=== PATIENT | female | born 1950 | race African-American/Black ===

== ENCOUNTER 2018-12-26 08:33 | Inpatient (IN) | payer BC ==
[2018-12-13 14:54] VITALS: BMI 38.3
[2018-12-26] MEDS ORDERED: BUPIVACAINE LIPOSOME/PF (EXPAREL) 266 MG/20 ML VIAL ONE (09:15)
[2018-12-26] MEDS ORDERED: MIDAZOLAM HCL 2 MG/2 ML SINGLE DOSE VIAL ONE (09:15)
[2018-12-26] MEDS ORDERED: SODIUM CHLORIDE 0.9% P/F 10 ML VIAL IJ ONE (09:16)
[2018-12-26] MEDS ORDERED: ceFAZolin SODIUM 1 GM VIAL ONE (10:39)
[2018-12-26] MEDS ORDERED: DEXAMETHASONE SOD PHOSPHATE 4 MG/1 ML VIAL ONE (10:39)
[2018-12-26] MEDS ORDERED: KETOROLAC TROMETHAMINE 30 MG/1 ML VIAL ONE (10:39)
[2018-12-26] MEDS ORDERED: VANCOMYCIN 1,000 MG VIAL (RESTRICTED TO ID ONLY) ONE (10:39)
[2018-12-26] MEDS ORDERED: TRANEXAMIC ACID 1000 MG/10 ML VIAL ONE (10:39)
[2018-12-26] MEDS ORDERED: PROPOFOL 20 ML ONE ×3 (10:41→12:21)
[2018-12-26] MEDS ORDERED: CEFAZOLIN 2 GM in DEXTROSE 5%-WATER - 50 ML IVPB ONE (10:57)
[2018-12-26] MEDS ORDERED: TRANEXAMIC ACID 1000 MG/10 ML VIAL IVPUSH ONE (10:57)
[2018-12-26] MEDS ORDERED: VANCOMYCIN 1,000 MG in DEXTROSE 5%-WATER - 250 ML IVPB ONE (10:57)
[2018-12-26] MEDS ORDERED: LIDOCAINE HCL 2% 100 MG/5 ML DISP.SYRIN ONE (11:09)
[2018-12-26] MEDS ORDERED: ONDANSETRON 4 MG/2 ML VIAL ONE (11:17)
--- NOTE | 2018-12-26 13:30 | OP ---
Operative Note - Note: Operative Date: 12/26/18 Pre-Operative Diagnosis: Left Tricompartment Osteoarthritis Operation: L Total Knee Arthroplasty Implants: Renetta Femur Triatholon 5 Tibia 4 Patella 27 Surgeon: Americo Salazar Library Science Professor: Toi Rausch Anesthesia: Spinal Estimated Blood Loss (mls): 0 Drains & Tubes with Location: 03/13 Hemovac times 2 Fluid Volume Replaced (mls): 2
--- NOTE | 2018-12-26 13:34 | HP ---
HISTORY OF PRESENT ILLNESS: 68 year-old female with a PMH significant for HTN, HLD, Type II NIDDM, diabetic neuropathy, iron-deficiency anemia, CKD, and OA s/p left total knee arthroplasty today with Dr. Salazar. PAST MEDICAL HISTORY: Hypertension Hyperlipidemia Type II NIDDM Diabetic neuropathuy Iron deficiency anemia CKD, Stage 3 PAST SURGICAL HISTORY: None reported Social History: Smoking: Alcohol: Drugs: Allergies aspirin Allergy (Severe, Verified 12/26/18 09:09) Difficulty Breathing HOME MEDICATIONS: Home Medications Medication Instructions Recorded Amitriptyline HCl [Elavil -] 50 mg PO HS 12/13/18 Atorvastatin Calcium 20 mg PO DAILY 12/13/18 Duloxetine HCl [Cymbalta] 30 mg PO BID 12/13/18 Fluticasone/Salmeterol [Advair Hfa 1 inh PO BID 12/13/18 230-21 Mcg Inhaler] Gabapentin 100 mg PO BID 12/13/18 Ibuprofen/Famotidine [Duexis 1 each PO BID 12/13/18 800-26.6 mg Tablet] Losartan/Hydrochlorothiazide 1 each PO DAILY 12/13/18 [Losartan-Hctz 50-12.5 mg Tab] Metformin HCl [Glucophage] 1,000 mg PO BID 12/13/18 Omeprazole 20 mg PO DAILY 12/13/18 Sitagliptin Phosphate [Januvia -] 50 mg PO DAILY 12/13/18 REVIEW OF SYSTEMS CONSTITUTIONAL: Absent: fever, chills, diaphoresis, generalized weakness, malaise, loss of appetite, weight change HEENT: Absent: rhinorrhea, nasal congestion, throat pain, throat swelling, difficulty swallowing, mouth swelling, ear pain, eye pain, visual changes CARDIOVASCULAR: Absent: chest pain, syncope, palpitations, irregular heart rate, lightheadedness , peripheral edema RESPIRATORY: Absent: cough, shortness of breath, dyspnea with exertion, orthopnea, wheezing, stridor, hemoptysis GASTROINTESTINAL: Absent: abdominal pain, abdominal distension, nausea, vomiting, diarrhea, constipation, melena, hematochezia GENITOURINARY: Absent: dysuria, frequency, urgency, hesitancy, hematuria, flank pain, genital pain MUSCULOSKELETAL: Absent: myalgia, arthralgia, joint swelling, back pain, neck pain SKIN: Absent: rash, itching, pallor HEMATOLOGIC/IMMUNOLOGIC: Absent: easy bleeding, easy bruising, lymphadenopathy, frequent infections ENDOCRINE: Absent: unexplained weight gain, unexplained weight loss, heat intolerance, cold intolerance NEUROLOGIC: Absent: headache, focal weakness or paresthesias, dizziness, unsteady gait, seizure, mental status changes, bladder or bowel incontinence PSYCHIATRIC: Absent: anxiety, depression, suicidal or homicidal ideation, hallucinations. PHYSICAL EXAMINATION Vital Signs - 24 hr 12/26/18 12/26/18 09:17 09:19 Temperature 98.5 F Pulse Rate 72 Respiratory 16 Rate Blood Pressure 143/85 O2 Sat by Pulse 100 Oximetry (%) GENERAL: Awake, alert, and fully oriented, in no acute distress. HEAD: Normal with no signs of trauma. EYES: Pupils equal, round and reactive to light, extraocular movements intact, sclera anicteric, conjunctiva clear. No lid lag. EARS, NOSE, THROAT: Ears normal, nares patent, oropharynx clear without exudates. Moist mucous membranes. NECK: Normal range of motion, supple without lymphadenopathy, JVD, or masses. LUNGS: Breath sounds equal, clear to auscultation bilaterally. No wheezes, and no crackles. No accessory muscle use. HEART: Regular rate and rhythm, normal S1 and S2 without murmur, rub or gallop. ABDOMEN: Soft, nontender, not distended, normoactive bowel sounds, no guarding, no rebound, no masses. No hepatomegaly or splenomegaly. MUSCULOSKELETAL: Normal range of motion at all joints. No bony deformities or tenderness. No CVA tenderness. UPPER EXTREMITIES: 2+ pulses, warm, well-perfused. No cyanosis. No clubbing. No peripheral edema. LOWER EXTREMITIES: 2+ pulses, warm, well-perfused. No calf tenderness. No peripheral edema. NEUROLOGICAL: Cranial nerves II-XII intact. Normal speech. Normal gait. PSYCHIATRIC: Cooperative. Good eye contact. Appropriate mood and affect. SKIN: Warm, dry, normal turgor, no rashes or lesions noted, normal capillary refill. Laboratory Results - last 24 hr 12/26/18 09:29 POC Glucometer 99 Pre op Intra op Ancef 2g, Vanc 1g EBL <100mL LR 1800mL ASSESSMENT/PLAN: 68 year-old female with a PMH significant for HTN, HLD, Type II NIDDM, diabetic neuropathy, iron-deficiency anemia, CKD, and OA s/p left total knee arthroplasty today with Dr. Salazar. Left total knee arthroplasty on 12/26 --POD #0 --perioperative antibiotics per surgery --pain management per surgery --lovenox subq 30mg BID --protonix --bowel regimen --incentive spirometry --Hemovac drain, monitor output --monitor UOP Hypertension --continue HCTZ, losartan Hyperlipidemia --continue Lipitor Type II NIDDM Diabetic neuropathy --continue Januvia, metformin --Novolog sliding scale coverage Iron-deficiency anemia CKD, Stage 3 --pre op Cr 1.5 FEN Fluids: PO intake adequate Electrolytes: replete as indicated Nutrition: regular diet DVT prophylaxis: OOB, ambulation, SCDs, TEDs, subq lovenox Physical therapy Dispo: continues to require inpatient care. Full code. Visit type - Emergency Visit Emergency Visit: No - New Patient This patient is new to me today: Yes Date on this admission: 12/28/18 - Critical Care Critical Care patient: No
--- NOTE | 2018-12-26 13:53 | SURG ---
Surgery Wildlife Control Agent Note Wildlife Control Agent: Toi Rausch PA-C Date of Service: 12/26/18 Diagnosis: Left Tricompartment Osteoarthritis Procedure: Left Total Knee Arthroplasty I was present for the entirety of the operative procedure. For further detail, please refer to operative report. Visit type - Case Type Case Type: Scheduled - New patient This patient is new to me today: Yes Date on this admission: 12/26/18
[2018-12-26] MEDS ORDERED: ONDANSETRON 4 MG/2 ML VIAL IVPUSH PRN (13:54)
[2018-12-26] MEDS ORDERED: MAGNESIUM HYDROX 2400MG/30ML ORAL SUSPENSION 30 ML CUP PO PRN (13:54)
[2018-12-26] MEDS ORDERED: ACETAMINOPHEN 325 MG TABLET (FP) PO SCH (14:00)
[2018-12-26] MEDS ORDERED: LACTATED RINGERS SOLUTION 1,000 ML IV SCH (14:00)
[2018-12-26] MEDS: metFORMIN HCL 500 MG TABLET (FP) PO SCH (17:08)
[2018-12-26] MEDS: CEFAZOLIN 2 GM/D5W 2 GM/50 ML ML IVPB SCH (18:19)
[2018-12-26] MEDS: oxyCODONE HCL 5 MG TABLET PO PRN (18:20)
[2018-12-26] MEDS ORDERED: PT OWN MED DRAWER 7, Y5N ONE (21:09)
[2018-12-26] MEDS ORDERED: INSULIN (NOVOLOG) ASPART 100 UNITS/ML 10ML VIAL ONE (21:10)
[2018-12-26] MEDS: BUDESONIDE/FORMETEROL FUMARATE 80/4.5 mcg INHALER IH SCH (21:20)
[2018-12-26] MEDS: AMITRIPTYLINE HCL 25 MG TABLET (FP) PO SCH (21:21)
[2018-12-26] MEDS: SENNOSIDES/DOCUSATE COMBO (SENNA PLUS) TABLET (UD) PO SCH (21:21)
[2018-12-26] MEDS: GABAPENTIN 100 MG CAPSULE (FP) PO SCH (21:21)
[2018-12-26] MEDS: DULoxetine HCL 30 MG CAPSULE.DR PO SCH (21:21)
[2018-12-26] MEDS: oxyCODONE HCL 10 MG SUSTAINED ACTING TABLET PO SCH (21:22)
[2018-12-26] MEDS: ACETAMINOPHEN 325 MG TABLET (FP) PO SCH (21:22)
[2018-12-26] MEDS: ASCORBIC ACID 500 MG TABLET (FP) PO SCH (21:23)
[2018-12-26] MEDS: INSULIN SLIDING SCALE (NOVOLOG) 1 VIAL SQ SCH (21:23)
[2018-12-26] MEDS: ENOXAPARIN NA (PORCINE) 30 MG/0.3 ML DISP.SYRIN SQ SCH (21:23)
[2018-12-26] MEDS ORDERED: PATIENT'S OWN MEDICATION (NON-FORMULARY) (Ibuprofen/Famotidine [Duexis 800-26.6 Mg Tablet] PO SCH (22:00)
[2018-12-26] MEDS ORDERED: PATIENT'S OWN MEDICATION (NON-FORMULARY) (Fluticasone/Salmeterol [Advair Hfa 230-21 Mcg In PO SCH (22:00)
[2018-12-26] MEDS ORDERED: PATIENT'S OWN MEDICATION (NON-FORMULARY) (Metformin Hcl [Glucophage] 1,000 MG) PO SCH (22:00)
[2018-12-26] MEDS ORDERED: ASPIRIN 325 MG TABLET PO SCH (22:00)
[2018-12-27] MEDS: oxyCODONE HCL 5 MG TABLET PO PRN ×4 (00:38→17:25)
[2018-12-27] MEDS: CEFAZOLIN 2 GM/D5W 2 GM/50 ML ML IVPB SCH (01:52)
[2018-12-27] MEDS: ACETAMINOPHEN 325 MG TABLET (FP) PO SCH ×4 (03:00→20:15)
[2018-12-27] MEDS: metFORMIN HCL 500 MG TABLET (FP) PO SCH ×2 (06:36→17:24)
[2018-12-27] MEDS: sitaGLIPtin PHOSPHATE 50 MG TABLET PO SCH (06:38)
[2018-12-27] MEDS: INSULIN SLIDING SCALE (NOVOLOG) 1 VIAL SQ SCH ×4 (06:42→21:31)
[2018-12-27 07:16] LABS: HEMATOCRIT 27.9 % (32.4-45.2); MCH 29.2 pg (25.7-33.7); MCHC 32.2 g/dl (32.0-36.0); MEAN CELL VOLUME 90.7 fl (80-96); MEAN PLT VOLUME 9.2 fl (7.5-11.1); PLATELET COUNT 257 K/MM3 (134-434); RBC 3.08 M/mm3 (3.60-5.2); RDW 13.6 % (11.6-15.6); WHITE BLOOD COUNT 10.5 K/mm3 (4.0-10.8)
[2018-12-27 07:32] LABS: CALCIUM 8.5 mg/dl (8.5-10); CREATININE 1.8 mg/dl (0.55-1.3); MAGNESIUM 1.2 mg/dL (1.8-2.4); POTASSIUM 4.5 mmol/L (3.5-5.1)
--- NOTE | 2018-12-27 08:07 | OP ---
DATE OF OPERATION: 12/26/2018 SURGEON: Americo Salazar MD BUTADIENE CONVERTER HELPER: JAMI Dan PREOPERATIVE DIAGNOSIS: Tricompartment osteoarthritis, left knee. POSTOPERATIVE DIAGNOSIS: Tricompartment osteoarthritis, left knee. OPERATION PERFORMED: Left posterior-stabilized total knee arthroplasty ([place] ). ANESTHESIA: Conscious sedation with spinal anesthesia and peripheral nerve block. ANTIBIOTICS GIVEN: Kefzol 2 g, vancomycin 1 g preoperative; Kefzol 1 g given at the end of the procedure. OPERATION DETAILS: The patient correctly identified, brought to the operating room. Left lower extremity was prepped and draped in the routine manner with Betadine scrub solution, wiped off with alcohol. DuraPrep applied. Imaging was available for intraoperative evaluation. Heavy leg. Difficult operation. In the supine position, the left lower extremity was prepped and draped in routine manner with Betadine scrub solution, wiped off with alcohol. DuraPrep applied. Midline incision utilized. The dissection was taken through the skin and subcutaneous tissue to the quadriceps mechanism. Starting on the medial side, the tibial tubercle the soft tissue was dissected onto the bone bed, lifted off the bone using a unipolar Bovie. This gave easy access to the actual proximal tibia. The incision was then coursed backwards to the posterior medial aspect of the distal femur, approximately 1 inch below the border of vastus medialis. The vastus medialis epimysium was lifted off the muscle, and the dissection was taken right around to linear aspera and to the vascular bundle at the adductor canal and adductor hiatus. With difficulty, we could not flex the knee adequately; this necessitated first the patella cut. The cut was made along Bynum line from patellar ligament to the quadriceps tendon. The appropriate lug holes were drilled to receive a size 27-mm patellar button. Once performed, the tibia was cut 90 degrees to the shaft of the tibia to receive a size 4 tibial component. The appropriate broaches and starter holes were inserted through the broach. The femur was cut to 4 degrees of valgus and 8 mm resected. There was no fixed flexion deformity. The femoral component measured size 5, and this enabled a very adequate, after utilizing the jig cuts, the size 5 seated well. With a size 11 polyethylene tray in the trial position, the limb was aligned well into neutral anatomical coronal plane alignment. The tracking was neutral and normal with a negative thumb test. Femoral flexion gap testing was tight and well maintained. This was measured with a Condon, elevating the medial compartment of the actual implant surface. Once we were happy with all the trialing components, the bone bed was thoroughly lavaged with pulse lavage. Cementing was in 1 stage, tibia, femur, and then patella. All extraneous cement was removed without any difficulty. Size 11 polyethylene for a posterior-stabilized implant was then inserted. Again, this simulated what we found on the trialing components, and excellent alignment with full extension, flexion to 120 degrees, complete stability in the coronal sagittal plane and rotational plane. Patellar tracking was uncomplicated and neutral. Subvastus repair was with number 1 Vicryl, that is medial and lateral retinaculum extending down to the medial aspect of the femur. Thick layer of subcutaneous tissue number 1 Vicryl subcutaneous and 2-0 Vicryl. Skin marlen. DRAINAGE: A 1/8-inch Hemovac x2, one placed at the subvastus area and the other in the subcutaneous fat layer of the starter wound. COMPLICATIONS: None. MD CHRIS Hurtado/[id number] MTDD
[2018-12-27] MEDS: ATORVASTATIN CA 20 MG TABLET (FP) PO SCH (09:43)
[2018-12-27] MEDS: GABAPENTIN 100 MG CAPSULE (FP) PO SCH ×2 (09:43→21:32)
[2018-12-27] MEDS: DULoxetine HCL 30 MG CAPSULE.DR PO SCH ×2 (09:43→21:31)
[2018-12-27] MEDS: ENOXAPARIN NA (PORCINE) 30 MG/0.3 ML DISP.SYRIN SQ SCH ×2 (09:43→21:32)
[2018-12-27] MEDS: MULTIVITAMINS (DAILY MVI) TABLET (FP) PO SCH (09:44)
[2018-12-27] MEDS: ASCORBIC ACID 500 MG TABLET (FP) PO SCH ×2 (09:44→21:32)
[2018-12-27] MEDS: PANTOPRAZOLE 40 MG TABLET (FP) PO SCH (09:44)
[2018-12-27] MEDS: oxyCODONE HCL 10 MG SUSTAINED ACTING TABLET PO SCH ×2 (09:44→21:32)
[2018-12-27] MEDS: SENNOSIDES/DOCUSATE COMBO (SENNA PLUS) TABLET (UD) PO SCH ×2 (09:44→21:33)
[2018-12-27] MEDS ORDERED: LOSARTAN 50MG/HCTZ 12.5MG 1 TAB (FP) PO SCH (10:00)
[2018-12-27] MEDS ORDERED: PATIENT'S OWN MEDICATION (NON-FORMULARY) (Omeprazole [Omeprazole] 20 MG) PO SCH (10:00)
--- NOTE | 2018-12-27 10:11 | PN ---
Progress Note (short form) - Note Progress Note: POD#1 PT with some dizziness this am. No CP/SOB. Voiding without difficulty. Left foot with some numbess/tingling more than her baseline neuropathy. Vital Signs Period Temp Pulse Resp BP Sys/Rao Pulse Ox Last 24 Hr 97.4 F-98.5 F 55-75 13-18 108-144/55-88 100-100 VISHAL:10ml(placed back on self suction) GEN: A&0x3, oob to chair CV; RRR Lungs: CTA b/l Left knee dressing c/d/i. 5/5 albaro/plantar flexion/EHL b/l. Able to straight leg raise right>left LE: b/l calves soft, non-tender, no edema. SCDs/TEDs in place. CBC, BMP 12/27/18 07:09 12/27/18 07:09 Laboratory Tests 12/26/18 12/26/18 12/26/18 09:29 13:55 21:18 POC Glucometer 99 90 166 12/27/18 06:34 POC Glucometer 118 A/p: 68 yo female s/p Left total knee replacment, POD#1 Glucose well controlled, continue oral medications/insulin.j DVT ppx with lovenox 30mg SQ BID, unable to take aspirin to due allergy. OOB/ ambulate/TAMIKA/SCDS Pain management with oral pain medications. Drain to self suction, replaced today because it wasn't holding suction OOB and ambulate with PT/nursing staff D/w Dr. Salazar
[2018-12-27] MEDS: BUDESONIDE/FORMETEROL FUMARATE 80/4.5 mcg INHALER IH SCH ×2 (10:14→21:33)
--- NOTE | 2018-12-27 10:46 | PN ---
Progress Note (short form) - Note Progress Note: 68 yo F, s/p TKR. pt comfortable on PO meds. no anesthetic comps. good result anesthetic care
[2018-12-27] MEDS ORDERED: PT OWN MED DRAWER 7, Y5N ONE (10:48)
[2018-12-27] MEDS ORDERED: SODIUM CHLORIDE 500 ML IV STA (13:46)
--- NOTE | 2018-12-27 18:44 | PN ---
Physical Exam: SUBJECTIVE: Patient seen and examined. No pain at present. Participated in PT this morning. OBJECTIVE: Vital Signs Period Temp Pulse Resp BP Sys/Rao Pulse Ox Last 24 Hr 97.6 F-98.5 F 67-79 16-18 108-141/48-69 100-100 GENERAL: Awake, alert, and fully oriented, in no acute distress. LUNGS: Breath sounds equal, clear to auscultation bilaterally. No wheezes, and no crackles. No accessory muscle use. HEART: Regular rate and rhythm, normal S1 and S2 UPPER EXTREMITIES: 2+ pulses, warm, well-perfused. No cyanosis. No clubbing. No peripheral edema. LLE: Surgical dressings c/d/i; SCDs, TEDs, ice pack; flex/extend toes, 5/5 sensory NEUROLOGICAL: Cranial nerves II-XII intact. Normal speech. Laboratory Results - last 24 hr 12/26/18 12/27/18 12/27/18 21:18 06:34 07:09 WBC 10.5 RBC 3.08 L Hgb 9.0 L Hct 27.9 L MCV 90.7 MCH 29.2 MCHC 32.2 RDW 13.6 Plt Count 257 MPV 9.2 Sodium Potassium Chloride Carbon Dioxide Anion Gap BUN Creatinine Est GFR (CKD-EPI)AfAm Est GFR (CKD-EPI)NonAf POC Glucometer 166 118 Random Glucose Calcium Magnesium 12/27/18 12/27/18 12/27/18 07:09 11:22 16:26 WBC RBC Hgb Hct MCV MCH MCHC RDW Plt Count MPV Sodium 137 Potassium 4.5 Chloride 103 Carbon Dioxide 22 Anion Gap 12 BUN 26.0 H Creatinine 1.8 H Est GFR (CKD-EPI)AfAm 32.48 Est GFR (CKD-EPI)NonAf 28.02 POC Glucometer 94 116 Random Glucose 128 H Calcium 8.5 Magnesium 1.2 L Active Medications Generic Name Dose Route Start Last Admin Trade Name Freq PRN Reason Stop Dose Admin Acetaminophen 650 mg 12/26/18 21:00 12/27/18 15:40 Tylenol - PO 12/29/18 20:59 Not Given Q6H LIBIA Al Hydroxide/Mg Hydroxide 30 ml 12/26/18 13:54 Mylanta Oral Suspension - PO Q4H PRN DYSPEPSIA Amitriptyline HCl 50 mg 12/26/18 22:00 12/26/18 21:21 Elavil - PO 50 mg HS [facility] Administration Ascorbic Acid 500 mg 12/26/18 22:00 12/27/18 09:44 Vitamin C - PO 500 mg BID LIBIA Administration Atorvastatin Calcium 20 mg 12/27/18 10:00 12/27/18 09:43 Lipitor - PO 20 mg DAILY LIBIA Administration Budesonide/Formoterol Fumarate 2 puff 12/26/18 22:00 12/27/18 10:14 Symbicort 80/4.5mcg - IH 2 puff BID [facility] Administration Duloxetine HCl 30 mg 12/26/18 22:00 12/27/18 09:43 Cymbalta - PO 30 mg BID [facility] Administration Enoxaparin Sodium 30 mg 12/26/18 22:00 12/27/18 09:43 Lovenox - SQ 30 mg BID [facility] Administration Gabapentin 100 mg 12/26/18 22:00 12/27/18 09:43 Neurontin - PO 100 mg BID [facility] Administration HCTZ/Losartan Potassium 1 tab 12/27/18 10:00 Hyzaar - PO DAILY [facility] Insulin Aspart 1 vial 12/26/18 22:00 12/27/18 16:44 Novolog Vial Sliding Scale - SQ Not Given [facility] Protocol Magnesium Hydroxide 30 ml 12/26/18 13:54 Milk Of Magnesia - PO PRN PRN CONSTIPATION Metformin HCl 1,000 mg 12/26/18 16:30 12/27/18 17:24 Glucophage - PO 1,000 mg BIDI [facility] Administration Multivitamins/Minerals/Vitamin C 1 tab 12/27/18 10:00 12/27/18 09:44 Tab-A-Vit - PO 1 tab DAILY [facility] Administration Ondansetron HCl 4 mg 12/26/18 13:54 Zofran Injection IVPUSH Q6H PRN NAUSEA Oxycodone HCl 5 mg 12/26/18 13:58 12/27/18 17:25 Roxicodone - PO 5 mg Q3H PRN Administration PAIN LEVEL 1-5 Oxycodone HCl 10 mg 12/26/18 13:58 12/27/18 14:00 Roxicodone - PO 10 mg Q3H PRN Administration PAIN LEVEL 6-10 Oxycodone HCl 10 mg 12/26/18 22:00 10/24/19 09:44 Oxycontin - PO 10/26/19 13:58 10 mg BID LIBIA Administration Pantoprazole Sodium 40 mg 12/27/18 10:00 12/27/18 09:44 Protonix - PO 40 mg DAILY LIBIA Administration Senna/Docusate Sodium 2 tablet 12/26/18 22:00 12/27/18 09:44 Pericolace - PO 2 tablet BID LIBIA Administration Sitagliptin Phosphate 50 mg 12/27/18 07:00 12/27/18 06:38 Januvia - PO 50 mg DAILY@0700 LIBIA Administration ASSESSMENT/PLAN 68 year-old female with a PMH significant for HTN, HLD, Type II NIDDM, diabetic neuropathy, iron-deficiency anemia, CKD, and OA s/p left total knee arthroplasty today with Dr. Salazar. Left total knee arthroplasty on 12/26 --POD #1 --perioperative antibiotics complete --pain management per surgery --lovenox subq 30mg BID (allergy to ASA) --protonix --bowel regimen --incentive spirometry --Hemovac drain, monitor output --monitor UOP Hypertension --continue HCTZ, losartan Hyperlipidemia --continue Lipitor Type II NIDDM Diabetic neuropathy --continue Januvia, metformin --Novolog sliding scale coverage Iron-deficiency anemia CKD, Stage 3 --pre op Cr 1.5, today 1.8 --give NS 500mL x 1 FEN Fluids: PO intake adequate Electrolytes: replete as indicated Nutrition: regular diet DVT prophylaxis: OOB, ambulation, SCDs, TEDs, subq lovenox Physical therapy Dispo: continues to require inpatient care. Full code. Visit type - Emergency Visit Emergency Visit: No - New Patient This patient is new to me today: No - Critical Care Critical Care patient: No
[2018-12-27] MEDS: MAG HYDROX/AL HYDROX/SIMETH 30 ML UNIT-DOSE CUP PO PRN (20:18)
[2018-12-27] MEDS: AMITRIPTYLINE HCL 25 MG TABLET (FP) PO SCH (21:32)
[2018-12-28] MEDS: oxyCODONE HCL 5 MG TABLET PO PRN (00:08)
[2018-12-28 01:52] VITALS: TEMP 98
[2018-12-28] MEDS: ACETAMINOPHEN 325 MG TABLET (FP) PO SCH ×2 (06:18→09:53)
[2018-12-28] MEDS: sitaGLIPtin PHOSPHATE 50 MG TABLET PO SCH (06:24)
[2018-12-28] MEDS: metFORMIN HCL 500 MG TABLET (FP) PO SCH (06:24)
[2018-12-28] MEDS: INSULIN SLIDING SCALE (NOVOLOG) 1 VIAL SQ SCH (06:25)
[2018-12-28 07:16] LABS: HEMATOCRIT 27.4 % (32.4-45.2); HEMOGLOBIN 8.6 GM/dl (10.7-15.3); MCH 28.8 pg (25.7-33.7); MCHC 31.5 g/dl (32.0-36.0); MEAN CELL VOLUME 91.5 fl (80-96); MEAN PLT VOLUME 8.8 fl (7.5-11.1); PLATELET COUNT 261 K/MM3 (134-434); RDW 13.7 % (11.6-15.6); WHITE BLOOD COUNT 8.4 K/mm3 (4.0-10.8)
[2018-12-28 07:30] LABS: CALCIUM 8.2 mg/dl (8.5-10); CREATININE 1.8 mg/dl (0.55-1.3); POTASSIUM 3.8 mmol/L (3.5-5.1)
[2018-12-28] MEDS ORDERED: SODIUM CHLORIDE 500 ML IV STA (08:17)
--- NOTE | 2018-12-28 09:01 | PN ---
Progress Note (short form) - Note Progress Note: ORTHOPAEDIC SURGERY POD #2 Alert. Sitting in chair at bedside. C/o mild incisional tenderness. Adequate pain with meds ordered. PT notes reviewed and recovering as expected. Voiding spontaneously. Tolerating PO diet. Denies n/v/f/c, CP, palpitations, SOB or MENDEZ. Last Vital Signs Temp Pulse Resp BP Pulse Ox 98.0 F 110 H 20 135/59 L 94 L 12/28/18 06:00 12/28/18 06:00 12/28/18 06:00 12/28/18 06:00 12/28/18 06:00 CBC, BMP 12/28/18 07:07 12/28/18 07:07 PE Gen: nad, obese habitus LE: RLE unremarkable. LLE ice pack in place, dressing taken down on rounds. Jumstart dressing c/d/i. Flex knee to 90 degrees. No gross sensory/motor deficits. SCDs bilat. No calf tenderness. Minimal output from Hemovac (sero>sang) Problem List - Problems (1) Status post total left knee replacement using cement Assessment/Plan: POD #2 s/p Left TKA - Pain control - DVT PPX 1.) ASA 81 mg PO BID x 6 weeks, 2.) Mechanical via TEDs & SCDs - Cont incentive spirometer - PT - Tight glycemic control - BP managed well - WBAT LLE - Cleared for discharge home today after PT session - f/u with [facility] ([place] [facility]) --> - Above plan discussed with my attending and agrees Code(s): Z96.652 - PRESENCE OF LEFT ARTIFICIAL KNEE JOINT (2) Obese body habitus Code(s): E66.9 - OBESITY, UNSPECIFIED (3) Tricompartment osteoarthritis of left knee Code(s): M17.12 - UNILATERAL PRIMARY OSTEOARTHRITIS, LEFT KNEE (4) HTN (hypertension) Code(s): I10 - ESSENTIAL (PRIMARY) HYPERTENSION (5) Type II diabetes mellitus Code(s): E11.9 - TYPE 2 DIABETES MELLITUS WITHOUT COMPLICATIONS (6) HLD (hyperlipidemia) Code(s): E78.5 - HYPERLIPIDEMIA, UNSPECIFIED
[2018-12-28] MEDS ORDERED: PT OWN MED DRAWER 7, Y5N ONE (09:20)
[2018-12-28] MEDS: ENOXAPARIN NA (PORCINE) 30 MG/0.3 ML DISP.SYRIN SQ SCH (09:24)
[2018-12-28] MEDS: SENNOSIDES/DOCUSATE COMBO (SENNA PLUS) TABLET (UD) PO SCH (09:25)
[2018-12-28] MEDS: MULTIVITAMINS (DAILY MVI) TABLET (FP) PO SCH (09:26)
[2018-12-28] MEDS: ASCORBIC ACID 500 MG TABLET (FP) PO SCH (09:26)
[2018-12-28] MEDS: ATORVASTATIN CA 20 MG TABLET (FP) PO SCH (09:26)
[2018-12-28] MEDS: oxyCODONE HCL 10 MG SUSTAINED ACTING TABLET PO SCH (09:27)
[2018-12-28] MEDS: GABAPENTIN 100 MG CAPSULE (FP) PO SCH (09:27)
[2018-12-28] MEDS: PANTOPRAZOLE 40 MG TABLET (FP) PO SCH (09:27)
[2018-12-28] MEDS: BUDESONIDE/FORMETEROL FUMARATE 80/4.5 mcg INHALER IH SCH (09:28)
[2018-12-28] MEDS: DULoxetine HCL 30 MG CAPSULE.DR PO SCH (09:53)
[2018-12-28 10:06] VITALS: BP 111/58; PULSE 96
[2018-12-28] MEDS ORDERED: MAGNESIUM SULF 50% (8.12 MEQ/2 ML-1 GM VIAL) IVPB ONE (10:09)
--- NOTE | 2018-12-28 10:32 | DS ---
"Physical Exam: SUBJECTIVE: Patient seen and examined OBJECTIVE: Vital Signs Period Temp Pulse Resp BP Sys/Rao Pulse Ox Last 24 Hr 97.9 F-98.7 F 79-110 18-20 111-136/49-66 94-100 PHYSICAL EXAM GENERAL: The patient is awake, alert, and fully oriented, in no acute distress. HEAD: Normal with no signs of trauma. EYES: PERRL, extraocular movements intact, sclera anicteric, conjunctiva clear. ENT: Ears normal, nares patent, oropharynx clear without exudates, moist mucous membranes. NECK: Trachea midline, full range of motion, supple. LUNGS: Breath sounds equal, clear to auscultation bilaterally, no wheezes, no crackles, no accessory muscle use. HEART: Regular rate and rhythm, S1, S2 without murmur, rub or gallop. ABDOMEN: Soft, nontender, nondistended, normoactive bowel sounds, no guarding, no rebound, no hepatosplenomegaly, no masses. EXTREMITIES: 2+ pulses, warm, well-perfused, no edema. NEUROLOGICAL: Cranial nerves II through XII grossly intact. Normal speech, gait not observed. PSYCH: Normal mood, normal affect. SKIN: Warm, dry, normal turgor, no rashes or lesions noted. LABS Laboratory Results - last 24 hr 12/27/18 12/27/18 12/27/18 11:22 16:26 21:23 WBC RBC Hgb Hct MCV MCH MCHC RDW Plt Count MPV Sodium Potassium Chloride Carbon Dioxide Anion Gap BUN Creatinine Est GFR (CKD-EPI)AfAm Est GFR (CKD-EPI)NonAf POC Glucometer 94 116 122 Random Glucose Calcium Magnesium 12/28/18 12/28/18 12/28/18 06:22 07:07 07:07 WBC 8.4 RBC 3.00 L Hgb 8.6 L Hct 27.4 L MCV 91.5 MCH 28.8 MCHC 31.5 L RDW 13.7 Plt Count 261 MPV 8.8 Sodium 136 Potassium 3.8 Chloride 102 Carbon Dioxide 24 Anion Gap 10 BUN 30.0 H Creatinine 1.8 H Est GFR (CKD-EPI)AfAm 32.48 Est GFR (CKD-EPI)NonAf 28.02 POC Glucometer 122 Random Glucose 143 H Calcium 8.2 L Magnesium 12/28/18 07:07 WBC RBC Hgb Hct MCV MCH MCHC RDW Plt Count MPV Sodium Potassium Chloride Carbon Dioxide Anion Gap BUN Creatinine Est GFR (CKD-EPI)AfAm Est GFR (CKD-EPI)NonAf POC Glucometer Random Glucose Calcium Magnesium 1.3 L HOSPITAL COURSE Date of Admission:12/26/18 Date of Discharge: 12/28/18 68 year-old female with a PMH significant for HTN, HLD, Type II NIDDM, diabetic neuropathy, iron-deficiency anemia, CKD, and OA s/p left total knee arthroplasty today with Dr. Salazar. Left total knee arthroplasty on 12/26 --POD #2 --perioperative antibiotics complete --pain well-managed with PO meds --lovenox subq 30mg BID while inpatient Hypertension --continued HCTZ, losartan Hyperlipidemia --continued Lipitor Type II NIDDM Diabetic neuropathy --continued Januvia, metformin --Novolog sliding scale coverage Iron-deficiency anemia CKD, Stage 3 DVT prophylaxis: OOB, ambulation, SCDs, TEDs, subq lovenox 40mg daily x 6 weeks Visit type - Emergency Visit Emergency Visit: No - New Patient This patient is new to me today: No - Critical Care Critical Care patient: No Search Terms: Alannah Price, 1950 Search Date: 12/28/2018 12:29:40 PM The Drug Utilization Report below displays all of the controlled substance prescriptions, if any, that your patient has filled in the last twelve months. The information displayed on this report is compiled from pharmacy submissions to the Department, and accurately reflects the information as submitted by the pharmacies. This report was requested by: Promise Donald | Reference #: [id number] Others' Prescriptions Patient Name: Alannah Price Date: 1950 Address: [address] [place] [address] Sex: Female Rx Written Rx Dispensed Drug Quantity Days Supply Prescriber Name 05/16/2018 05/21/2018 oxycodone-acetaminophen 5-325 mg tablet 60 30 Americo Salazar MS, MD Minutes to complete discharge: 35 Discharge Summary Problems reviewed: Yes Reason For Visit: UNILATERAL OSTEOARTHRITIS KNEE Current Active Problems HLD (hyperlipidemia) (Acute) HTN (hypertension) (Acute) Obese body habitus (Acute) Status post total left knee replacement using cement (Acute) Tricompartment osteoarthritis of left knee (Acute) Type II diabetes mellitus (Acute) Condition: Improved - Instructions Diet, Activity, Other Instructions: Dr. Salazar Discharge Instructions for Knee Replacement Post Operative Instructions Physical activity Physical Therapist will come to your home for the first 5 days. You will be set up with outpatient PT at your first post-operative visit. Use assistive devices for ambulation at all times. Weight bearing as tolerated on your surgical side. Do not put pillow under knee. May put pillow under heel. Wound care Leave your surgical dressing in place. Do not change the dressing until seen by your surgeon in the office. No baths or showers. Do not submerge your incision. Do not apply any ointments or lotions to your incision. Please call the office if your dressing is soiled/dirty or is falling off. Apply Graduated Compression Stockings (TEDS) to both lower extremities - remove daily for hygiene ONLY. Diet There are no dietary restrictions. Eat healthy, high-fiber foods. Drink 6 to 8 glasses of liquid each day. This will assist in keeping your bowels are regular. Pain management Any pain prescription medication ordered should be taken as prescribed for moderate to severe pain. Do not take additional Tylenol while taking Percocet. DVT PPX Lovenox 40 mg SQ daily x [address] Salazar for any of the following: Severe pain not relieved by medication Fever of 101 or higher Excessive bleeding or drainage on dressing Inability to urinate If you experience chest pain or shortness of breath, please seek emergency care immediately. ISTOP: This report was requested by: Adam Jang | Reference #: [id number] Please call the office at to confirm your post-op appointment for the week following surgery. Patient needs VNS services: shelter evaluation and home PT x 7 consecutive days Referrals: Escobar Salazar MD [Staff Physician] - Disposition: HOME - Home Medications Comprehensive Discharge Medication List: Ambulatory Orders Amitriptyline HCl [Elavil -] 50 mg PO HS 12/13/18 Atorvastatin Calcium 20 mg PO DAILY 12/13/18 Duloxetine HCl [Cymbalta] 30 mg PO BID 12/13/18 Fluticasone/Salmeterol [Advair Hfa 230-21 Mcg Inhaler] 1 inh PO BID 12/13/18 Gabapentin 100 mg PO BID 12/13/18 Ibuprofen/Famotidine [Duexis 800-26.6 mg Tablet] 1 each PO BID 12/13/18 Losartan/Hydrochlorothiazide [Losartan-Hctz 50-12.5 mg Tab] 1 each PO DAILY 12/22 Metformin HCl [Glucophage] 1,000 mg PO BID 12/13/18 Omeprazole 20 mg PO DAILY 12/13/18 Sitagliptin Phosphate [Januvia -] 50 mg PO DAILY 12/13/18 This patient is new to me today: No Emergency Visit: No Critical Care patient: No - Discharge Referral Referred to [facility] No"
[2018-12-28] MEDS: MAG HYDROX/AL HYDROX/SIMETH 30 ML UNIT-DOSE CUP PO PRN (10:38)
[2018-12-28] MEDS ORDERED: MAGNESIUM SULFATE IN WATER 2 GM/50 ML IVPB IVPB ONE (10:45)
--- NOTE | 2018-12-31 17:29 | PATH ---
Surgical Pathology Report Patient Name: ALBAN DOBBS Med. Rec. #: [id number] /Age/Gender: 1950 (Age: 68) / F Account: [id number] Location: [facility] Taken: 12/26/2018 Received: 12/26/2018 Reported: 12/31/2018 Physicians: Americo Salazar M.D. Specimen(s) Received LEFT KNEE BONES Clinical History Unilateral osteoarthritis left knee Final Diagnosis BONES, KNEE, LEFT, TOTAL KNEE REPLACEMENT: BONE WITH DEGENERATIVE JOINT DISEASE AND REACTIVE SYNOVIUM. Electronically Signed Claudia Willis M.D. Gross Description Received in formalin labeled "left knee bones," is an 11.0 x 10.5 x 2.2 cm aggregate of multiple elizabeth-yellow, irregular portions of bone and soft tissue. The tibial plateau measures 7.5 x 5.0 x 2.2 cm. No areas of eburnation are identified. The articular surfaces are elizabeth-yellow and diffusely granular. The underlying trabecular bone is yellow and hard. [employer] sections are submitted in one cassette, following decalcification. /12/28/2018 [facility]12/28/2018
== END 2018-12-28 13:26 | disposition home or self-care (01) | DRG 470 ==
LOC: FM/S 08:33
PROVIDERS: ADMIT Orthopaedic Surgery Orthopaedic Surgery of the Spine; ATTEND Nurse Practitioner Acute Care
PROC: 0SRD0J9 Replacement of Left Knee Joint with Synthetic Substitute, Cemented, Open Approach (ICD-10-PCS; principal; 2018-12-26 11:30)
DX: M17.12 Unilateral primary osteoarthritis, left knee (principal); I12.9 Hypertensive chronic kidney disease with stage 1 through stage 4 chronic kidney disease, or unspecified chronic kidney disease; E11.22 Type 2 diabetes mellitus with diabetic chronic kidney disease; N18.3 Chronic kidney disease, stage 3 (moderate); E78.5 Hyperlipidemia, unspecified; E11.40 Type 2 diabetes mellitus with diabetic neuropathy, unspecified; D50.9 Iron deficiency anemia, unspecified; E66.9 Obesity, unspecified; Z68.39 Body mass index [BMI] 39.0-39.9, adult
CPT/HCPCS: 36415; 73560-TC-LT-FY; 80048; 82962; 83735; 85027; 88305-TC; 88311-TC; 94760; 97116-GP; 97163-GP

== ENCOUNTER 2022-07-20 06:36 | Day surgery (SDC) | payer OTHER ==
[2022-06-28 17:35] VITALS: BMI 38.0
[2022-07-20] MEDS ORDERED: MIDAZOLAM HCL 2 MG/2 ML SINGLE DOSE VIAL ONE ×3 (08:43→09:51)
[2022-07-20] MEDS ORDERED: PROPOFOL 60 ML ONE (08:46)
[2022-07-20] MEDS ORDERED: BUPIVACAINE HCL/PF 0.5% (5MG/ML) 10 ML VIAL ONE (09:01)
[2022-07-20] MEDS ORDERED: METOCLOPRAMIDE HCL INJECTION 10 MG/2 ML VIAL ONE (09:03)
[2022-07-20] MEDS ORDERED: MINERAL OIL/PETROLATUM,WHITE 3.5 GM TUBE ONE (09:50)
[2022-07-20] MEDS ORDERED: HYDROmorphone HCL/PF 1 MG/ML VIAL ONE (10:11)
[2022-07-20] MEDS ORDERED: PROPOFOL 20 ML ONE (10:20)
[2022-07-20] MEDS ORDERED: ONDANSETRON 4 MG/2 ML VIAL IVPUSH PRN (11:04)
[2022-07-20] MEDS ORDERED: oxyCODONE HCL 5 MG TABLET PO PRN (11:04)
[2022-07-20] MEDS ORDERED: ACETAMINOPHEN 1000 MG/100 ML BAG IVPB ONE (11:05)
[2022-07-20] MEDS ORDERED: AMITRIPTYLINE HCL 50 MG TABLET PO PRN (11:09)
[2022-07-20] MEDS ORDERED: BUDESONIDE/FORMETEROL FUMARATE 80/4.5 mcg INHALER IH PRN (11:09)
[2022-07-20] MEDS ORDERED: LACTATED RINGERS SOLUTION 1,000 ML IV SCH (11:15)
[2022-07-20] MEDS ORDERED: PATIENT'S OWN MEDICATION (NON-FORMULARY) (Semaglutide [Ozempic] 1 MG/0.75 ML Pen.Injctr) SQ SCH (11:15)
[2022-07-20 12:31] VITALS: TEMP 97
[2022-07-20 12:58] VITALS: BP 158/74; PULSE 75; RESP 20
[2022-07-20] MEDS ORDERED: GABAPENTIN 100 MG CAPSULE PO SCH (14:00)
[2022-07-20] MEDS ORDERED: metFORMIN HCL 500 MG TABLET (FP) PO SCH (16:30)
[2022-07-20] MEDS ORDERED: DULoxetine HCL 30 MG CAPSULE.DR PO SCH (22:00)
[2022-07-21] MEDS ORDERED: sitaGLIPtin PHOSPHATE 50 MG TABLET PO SCH (07:00)
[2022-07-21] MEDS ORDERED: CHOLECALCIFEROL (VIT D3) 1,000 UNIT (25 MCG) TABLET PO SCH (10:00)
[2022-07-21] MEDS ORDERED: PANTOPRAZOLE 20 MG TABLET PO SCH (10:00)
[2022-07-21] MEDS ORDERED: LOSARTAN 50MG/HCTZ 12.5MG 1 TAB PO SCH (10:00)
[2022-07-21] MEDS ORDERED: CYANOCOBALAMIN 1,000 MCG TABLET (FP) PO SCH (10:00)
[2022-07-21] MEDS ORDERED: ATORVASTATIN CA 20 MG TABLET (FP) PO SCH (22:00)
== END 2022-07-20 14:00 | disposition home or self-care (01) ==
LOC: FASU 06:36
PROVIDERS: ATTEND Orthopaedic Surgery Orthopaedic Surgery of the Spine
PROC: 0MN20ZZ Release Left Shoulder Bursa and Ligament, Open Approach (ICD-10-PCS; 2022-07-20)
PROC: 0LQ20ZZ Repair Left Shoulder Tendon, Open Approach (ICD-10-PCS; 2022-07-20)
PROC: 0PBB0ZZ Excision of Left Clavicle, Open Approach (ICD-10-PCS; principal; 2022-07-20 10:06)
DX: M75.42 Impingement syndrome of left shoulder (principal); M24.812 Other specific joint derangements of left shoulder, not elsewhere classified; M12.812 Other specific arthropathies, not elsewhere classified, left shoulder
CPT/HCPCS: 82962; 88304-TC; 88311-TC; 94760

== ENCOUNTER 2022-12-26 08:47 | Day surgery (SDC) | payer OTHER ==
[2022-12-23 09:46] VITALS: BMI 36.5
[2022-12-26] MEDS ORDERED: TRANEXAMIC ACID 1000 MG/10 ML VIAL ONE ×2 (09:32→10:58)
[2022-12-26] MEDS ORDERED: VANCOMYCIN 1,000 MG VIAL (RESTRICTED TO ID ONLY) ONE ×2 (09:32→10:57)
[2022-12-26] MEDS ORDERED: CEFAZOLIN 2 GM in DEXTROSE 5%-WATER - 50 ML IVPB ONE (10:00)
[2022-12-26] MEDS ORDERED: TRANEXAMIC ACID 1000 MG/10 ML VIAL IVPUSH ONE (10:00)
[2022-12-26] MEDS ORDERED: BUPIVACAINE LIPOSOME/PF (EXPAREL) 266 MG/20 ML VIAL ONE (10:22)
[2022-12-26] MEDS ORDERED: MIDAZOLAM HCL 2 MG/2 ML SINGLE DOSE VIAL ONE (10:22)
[2022-12-26] MEDS ORDERED: ACETAMINOPHEN INJECTION 100 ML IVPB ONE (10:22)
[2022-12-26] MEDS ORDERED: BUPIVACAINE HCL/PF 0.5% (5MG/ML) 10 ML VIAL ONE (10:22)
[2022-12-26] MEDS ORDERED: ALBUTEROL SO4 HFA INHALER IH PRN (10:36)
[2022-12-26] MEDS ORDERED: PATIENT'S OWN MEDICATION (NON-FORMULARY) (Fluticasone/Salmeterol [Advair Hfa 230-21 Mcg In PO PRN (10:36)
[2022-12-26] MEDS ORDERED: AMITRIPTYLINE HCL 25 MG TABLET PO PRN (10:36)
[2022-12-26] MEDS ORDERED: SUCCINYLCHOLINE CHLORIDE 200 MG/10 ML SYRINGE ONE (10:45)
[2022-12-26] MEDS ORDERED: PROPOFOL 20 ML ONE ×2 (10:45→11:28)
[2022-12-26] MEDS ORDERED: ceFAZolin SODIUM 1 GM VIAL ONE ×2 (10:58)
[2022-12-26] MEDS ORDERED: TRANEXAMIC ACID 1000 MG/10 ML VIAL IVPB ONE (12:00)
[2022-12-26] MEDS ORDERED: VANCOMYCIN 1,000 MG VIAL (RESTRICTED TO ID ONLY) IVPB ONE (12:05)
[2022-12-26] MEDS ORDERED: ONDANSETRON 4 MG/2 ML VIAL ONE (12:32)
[2022-12-26] MEDS ORDERED: ACETAMINOPHEN 1000 MG/100 ML BAG IVPB ONE (12:43)
[2022-12-26] MEDS ORDERED: MAGNESIUM HYDROX 2400MG/30ML ORAL SUSPENSION 30 ML CUP PO PRN (12:44)
[2022-12-26] MEDS ORDERED: ONDANSETRON 4 MG/2 ML VIAL IVPUSH PRN (12:44)
[2022-12-26] MEDS ORDERED: MAG HYDROX/AL HYDROX/SIMETH 30 ML UNIT-DOSE CUP PO PRN (12:44)
[2022-12-26] MEDS ORDERED: LACTATED RINGERS SOLUTION 1,000 ML IV SCH ×2 (12:45→13:15)
[2022-12-26] MEDS ORDERED: ACETAMINOPHEN 325 MG TABLET (FP) PO PRN (13:01)
[2022-12-26] MEDS ORDERED: oxyCODONE HCL 5 MG TABLET PO PRN ×2 (13:01)
[2022-12-26] MEDS: CEFAZOLIN SODIUM 2 GM in DEXTROSE 5%-WATER 100 ML IVPB SCH (19:05)
[2022-12-26] MEDS: ACETAMINOPHEN 1000 MG/100 ML BAG IVPB SCH ×2 (19:06→23:39)
[2022-12-26] MEDS: GABAPENTIN 300 MG CAPSULE PO SCH (21:08)
[2022-12-26] MEDS: SENNOSIDES/DOCUSATE COMBO (SENNA PLUS) TABLET (UD) PO SCH (21:08)
[2022-12-26] MEDS: DULoxetine HCL 30 MG CAPSULE.DR PO SCH (21:09)
[2022-12-26] MEDS ORDERED: GABAPENTIN 300 MG CAPSULE PO SCH (22:00)
[2022-12-27] MEDS: CEFAZOLIN SODIUM 2 GM in DEXTROSE 5%-WATER 100 ML IVPB SCH ×2 (03:26→09:37)
[2022-12-27] MEDS: ACETAMINOPHEN 1000 MG/100 ML BAG IVPB SCH ×2 (06:40→18:27)
[2022-12-27 09:16] LABS: HEMATOCRIT 31.3 % (32.4-45.2); HEMOGLOBIN 9.8 G/dL (10.7-15.3); MCH 28.8 pg (25.7-33.7); MCHC 31.3 g/dl (32.0-36.0); MEAN CELL VOLUME 91.9 fl (80-96); PLATELET COUNT 207.1 10^3/uL (134-434); RBC 3.41 10^6/uL (3.60-5.2); RDW 15.3 % (11.6-15.6); WHITE BLOOD COUNT 4.9 10^3/uL (4.0-10.8)
[2022-12-27] MEDS: SENNOSIDES/DOCUSATE COMBO (SENNA PLUS) TABLET (UD) PO SCH ×2 (09:36→21:36)
[2022-12-27] MEDS: MULTIVITAMINS (DAILY MVI) TABLET (FP) PO SCH (09:36)
[2022-12-27] MEDS: CHOLECALCIFEROL (VIT D3) 1,000 UNIT (25 MCG) TABLET PO SCH (09:36)
[2022-12-27] MEDS: DULoxetine HCL 30 MG CAPSULE.DR PO SCH ×2 (09:36→21:35)
[2022-12-27] MEDS: GABAPENTIN 300 MG CAPSULE PO SCH ×2 (09:36→21:36)
[2022-12-27] MEDS: CYANOCOBALAMIN 1,000 MCG TABLET (FP) PO SCH (09:36)
[2022-12-27] MEDS: LOSARTAN 50MG/HCTZ 12.5MG 1 TAB PO SCH (09:36)
[2022-12-27] MEDS: CALCITRIOL 0.25 MCG CAPSULE (FP) PO SCH (09:36)
[2022-12-27] MEDS: PANTOPRAZOLE 20 MG TABLET PO SCH (09:37)
[2022-12-27] MEDS: ATORVASTATIN CA 40 MG TABLET (FP) PO SCH (09:37)
[2022-12-27 09:46] LABS: CALCIUM 9.1 mg/dl (8.5-10.1); CREATININE 1.4 mg/dl (0.6-1.3)
[2022-12-27] MEDS ORDERED: PANTOPRAZOLE 40 MG TABLET PO SCH (10:00)
[2022-12-27] MEDS ORDERED: PATIENT'S OWN MEDICATION (NON-FORMULARY) (Omeprazole [Omeprazole] 20 MG Tablet.Dr) PO SCH (10:00)
[2022-12-28 08:26] LABS: HEMATOCRIT 31.2 % (32.4-45.2); HEMOGLOBIN 9.8 G/dL (10.7-15.3); MCH 29.2 pg (25.7-33.7); MCHC 31.4 g/dl (32.0-36.0); MEAN CELL VOLUME 92.9 fl (80-96); MEAN PLT VOLUME 9.4 fl (7.5-11.1); PLATELET COUNT 235.2 10^3/uL (134-434); RBC 3.36 10^6/uL (3.60-5.2); RDW 15.2 % (11.6-15.6); WHITE BLOOD COUNT 7.2 10^3/uL (4.0-10.8)
[2022-12-28 08:53] VITALS: RESP 20
[2022-12-28] MEDS: LOSARTAN 50MG/HCTZ 12.5MG 1 TAB PO SCH (09:27)
[2022-12-28] MEDS: CHOLECALCIFEROL (VIT D3) 1,000 UNIT (25 MCG) TABLET PO SCH (09:27)
[2022-12-28] MEDS: CALCITRIOL 0.25 MCG CAPSULE (FP) PO SCH (09:27)
[2022-12-28] MEDS: PANTOPRAZOLE 20 MG TABLET PO SCH (09:27)
[2022-12-28] MEDS: ATORVASTATIN CA 40 MG TABLET (FP) PO SCH (09:27)
[2022-12-28] MEDS: CYANOCOBALAMIN 1,000 MCG TABLET (FP) PO SCH (09:27)
[2022-12-28] MEDS: MULTIVITAMINS (DAILY MVI) TABLET (FP) PO SCH (09:27)
[2022-12-28] MEDS: GABAPENTIN 300 MG CAPSULE PO SCH (09:27)
[2022-12-28] MEDS: SENNOSIDES/DOCUSATE COMBO (SENNA PLUS) TABLET (UD) PO SCH (09:27)
[2022-12-28] MEDS: DULoxetine HCL 30 MG CAPSULE.DR PO SCH (09:27)
[2022-12-28] MEDS ORDERED: ENOXAPARIN NA (PORCINE) 40 MG/0.4 ML DISP.SYRIN SQ SCH (10:00)
[2022-12-28 14:56] VITALS: BP 136/68; PULSE 92; TEMP 98
[2022-12-29] MEDS ORDERED: PATIENT'S OWN MEDICATION (NON-FORMULARY) (Semaglutide [Ozempic] 1 MG/0.75 ML Pen.Injctr) SQ SCH (10:00)
== END 2022-12-28 16:41 | disposition home or self-care (01) ==
LOC: FASUSAT 08:47 → FM/S 14:11 → FASUSAT 12-28 16:41
PROC: 0LS40ZZ Reposition Left Upper Arm Tendon, Open Approach (ICD-10-PCS; 2022-12-26)
PROC: 0RHK04Z Insertion of Internal Fixation Device into Left Shoulder Joint, Open Approach (ICD-10-PCS; 2022-12-26)
PROC: 0RRK0JZ Replacement of Left Shoulder Joint with Synthetic Substitute, Open Approach (ICD-10-PCS; principal; 2022-12-26 11:13)
DX: M75.102 Unspecified rotator cuff tear or rupture of left shoulder, not specified as traumatic (principal); M75.22 Bicipital tendinitis, left shoulder; M19.012 Primary osteoarthritis, left shoulder; R07.9 Chest pain, unspecified; I10 Essential (primary) hypertension; E78.5 Hyperlipidemia, unspecified; E11.9 Type 2 diabetes mellitus without complications
CPT/HCPCS: 23472; C1713; C1776; 36415; 73030-TC-LT-FY; 80048; 82962; 84484; 85027; 88305-TC; 88311-TC; 93005; 94760; 97116-GP; 97162-GP